=== PATIENT | female | born 1945 | race Hispanic/Latino ===

== ENCOUNTER 2018-09-14 19:11 | Emergency (ER) | payer MEDICARE ==
[2018-09-14] MEDS ORDERED: 0.9% SODIUM CHLORIDE 1000 ML IV BAG IV ONE (20:17)
[2018-09-14 20:30] LABS: BASOPHILS % (AUTO) 0.4 % (0.0-5.0); EOSINOPHILS % (AUTO) 0.4 % (0.0-8.0); HEMATOCRIT 35.8 % (36-48); MEAN CORPUSCULAR HEMOGLOBIN 30.9 pg (27.0-33.0); MEAN CORPUSCULAR HGB CONC 33.9 g/dL (32.0-36.0); MEAN CORPUSCULAR VOLUME 91.1 fL (79-99); MONOCYTES % (AUTO) 7.4 % (3.0-13.0); NEUTROPHILS % (AUTO) 68.8 % (40.0-77.0); NUCLEATED RED BLOOD CELLS 0.1 % (0.0-0.19); PLATELET COUNT (AUTO) 144 K/uL (130-400); RED BLOOD CELL COUNT(AUTO) 3.93 MIL/uL (4.00-5.50); RED CELL DISTRIBUTION WIDTH 13.7 % (11.0-15.5)
[2018-09-14 20:33] LABS: APPEARANCE,URINE Cloudy (CLEAR); BILIRUBIN,URINE Negative (NEGATIVE); COLOR,URINE Yellow (YELLOW); GLUCOSE, URINE (UA) Negative (NEGATIVE); KETONES,URINE Negative (NEGATIVE); LEUKOCYTE ESTERASE ,URINE Small (NEGATIVE); NITRATE,URINE Negative (NEGATIVE); OCCULT BLOOD,URINE Negative (NEGATIVE); PROTEIN,URINE Trace mg/dL (NEGATIVE)
[2018-09-14 20:42] LABS: CREATININE 0.8 mg/dL (0.5-1.5); POTASSIUM 3.9 mmol/L (3.5-5.1)
[2018-09-14 20:46] LABS: ALBUMIN 3.7 g/dL (3.5-5.0); BILIRUBIN,TOTAL 0.3 mg/dL (0.2-1.0)
[2018-09-14 21:25] LABS: BACTERIA,URINE Few /HPF (None Seen); MUCUS,URINE Few LPF (None Seen); RBC,URINE None Seen /HPF (0-1); SQUAMOUS EPITHELIAL CELL,UR 30-50 /HPF (0-2)
== END 2018-09-14 21:56 | disposition home or self-care (01) ==
LOC: EDH 19:11
DX: E86.9 Volume depletion, unspecified (principal); R53.81 Other malaise; R53.83 Other fatigue; T40.4X5A Adverse effect of other synthetic narcotics, initial encounter; I10 Essential (primary) hypertension; E78.5 Hyperlipidemia, unspecified; Y92.89 Other specified places as the place of occurrence of the external cause
CPT/HCPCS: 36415; 80053; 81001; 82550; 82948; 84484; 85025; 93005; 96360; 99284; J7030

== ENCOUNTER 2024-04-10 13:30 | Observation (INO) | payer MEDICARE ==
[~2024-04-10] VITALS: Ht 149.9 cm; Wt 61.2 kg
[2024-04-10 14:35] LABS: BASOPHILS # (AUTO) 0.01 K/uL (0.00-0.20); BASOPHILS % (AUTO) 0.1 % (0.0-5.0); EOSINOPHILS # (AUTO) 0.02 K/uL (0.00-0.70); EOSINOPHILS % (AUTO) 0.3 % (0.0-8.0); HEMATOCRIT 31.1 % (36-48); IMMATURE GRANULOCYTE ABSOLUTE 0.02 K/uL (0-1); LYMPHOCYTES # (AUTO) 1.1 K/uL (1.0-4.8); LYMPHOCYTES % (AUTO) 15.5 % (21.0-51.0); MEAN CORPUSCULAR HEMOGLOBIN 30.1 pg (27.0-33.0); MEAN CORPUSCULAR HGB CONC 33.1 g/dL (32.0-36.0); MEAN CORPUSCULAR VOLUME 90.9 fL (79-99); MONOCYTES # (AUTO) 0.4 K/uL (0.1-1.0); MONOCYTES % (AUTO) 5.5 % (3.0-13.0); NEUTROPHILS # (AUTO) 5.5 K/uL (1.8-7.7); NEUTROPHILS % (AUTO) 78.3 % (40.0-77.0); PLATELET COUNT (AUTO) 125 K/uL (130-400); RED BLOOD CELL COUNT(AUTO) 3.42 MIL/uL (4.00-5.50); RED CELL DISTRIBUTION WIDTH 13.9 % (11.0-15.5); WHITE BLOOD COUNT (AUTO) 7.1 K/uL (4.8-10.8)
[2024-04-10 14:56] LABS: ALBUMIN 3.3 g/dL (3.5-5.0); BILIRUBIN,DIRECT 0.2 mg/dL (0.0-0.3); BILIRUBIN,TOTAL 0.7 mg/dL (0.2-1.0); CREATININE 0.8 mg/dL (0.5-1.0)
[2024-04-10 14:58] LABS: B-TYPE NATRIURETIC PEPTIDE 88 pg/mL (0-100)
[2024-04-10] MEDS: DEXTROSE 5 % AND 0.9 % NACL 1,000 ML IV ONE (15:43)
[2024-04-10] MEDS ORDERED: PoTASSium chloRIDE 20MEQ ER 20 MEQ ERTAB PO PRN (16:00)
[2024-04-10] MEDS ORDERED: ondanSETRON 4MG TABLET PO PRN (16:00)
[2024-04-10] MEDS ORDERED: PoTASSium chloRIDE 20MEQ/100ML 100 ML IV PRN (16:00)
[2024-04-10] MEDS ORDERED: acetaMINOPHEN 325 MG TAB PO PRN (16:00)
[2024-04-10] MEDS: INSULIN LISpro 100 UNIT/ML 3ML SQ SCH (16:30)
[2024-04-10] MEDS: PoTASSium chl 10% ELIXIR 20MEQ 20 MEQ/15 ML UDCUP PO PRN (16:37)
[2024-04-10] MEDS: PoTASSium chloRIDE 20MEQ ER 20 MEQ ERTAB PO ONE (17:03)
[2024-04-10 17:11] LABS: APPEARANCE,URINE TURBID (CLEAR); BILIRUBIN,URINE NEGATIVE (NEGATIVE); COLOR,URINE YELLOW (YELLOW); GLUCOSE, URINE (UA) NEGATIVE (NEGATIVE); KETONES,URINE NEGATIVE (NEGATIVE); LEUKOCYTE ESTERASE ,URINE 500 Leu/uL (NEGATIVE); NITRATE,URINE NEGATIVE (NEGATIVE); OCCULT BLOOD,URINE NEGATIVE (NEGATIVE); PH,URINE 5.5 (5.0-8.0); PROTEIN,URINE 20 mg/dL (NEGATIVE); UROBILINOGEN,URINE 0.2 mg/dL (0.2-1.0)
[2024-04-10 17:12] LABS: ADD UA MICROSCOPIC YES
[2024-04-10 17:16] LABS: BACTERIA,URINE MOD /HPF (None Seen); MUCUS,URINE RARE LPF (None Seen); NON-SQUAMOUS EPITHELIAL CELL <1 /HPF (0-2); SQUAMOUS EPITHELIAL CELL,UR FEW /HPF (0-2); UNCLASSIFIED CRYSTAL 4 /HPF (None Seen); YEAST,URINE BUDDING FEW /HPF (None Seen)
[2024-04-10] MEDS: ALPRAZolam 0.5 MG TABLET PO ONE (17:55)
[2024-04-10] MEDS ORDERED: ROSU40TA88 PO (18:39)
[2024-04-10] MEDS ORDERED: SITA1TAB6 PO (18:39)
[2024-04-10] MEDS ORDERED: GLIP10TA16 PO (18:39)
[2024-04-10] MEDS ORDERED: LISI40TA9 PO (18:39)
[2024-04-10] MEDS ORDERED: MEMA5TAB16 PO (18:39)
[2024-04-10 20:00] VITALS: BP 152/79; PULSE 79; RESP 16; TEMP 98.4; O2SAT 98
[2024-04-10] MEDS: MEMANtine HCL 5 MG TABLET PO SCH (20:34)
[2024-04-10] MEDS: atorVAStatin 40 MG TABLET PO SCH (20:34)
[2024-04-10] MEDS: HALOPERIDOL INJ 5 MG/ML VIAL IM SCH (21:10)
[2024-04-11] VITALS (7 sets, daily range): BP systolic 131–166; BP diastolic 57–83; PULSE 71–98; RESP 16–20; TEMP 98.1–98.6; O2SAT 98
[2024-04-11 05:57] LABS: BASOPHILS # (AUTO) 0.03 K/uL (0.00-0.20); BASOPHILS % (AUTO) 0.5 % (0.0-5.0); EOSINOPHILS # (AUTO) 0.09 K/uL (0.00-0.70); EOSINOPHILS % (AUTO) 1.4 % (0.0-8.0); HEMATOCRIT 32.7 % (36-48); IMMATURE GRANULOCYTE ABSOLUTE 0.03 K/uL (0-1); LYMPHOCYTES # (AUTO) 1.9 K/uL (1.0-4.8); LYMPHOCYTES % (AUTO) 29.5 % (21.0-51.0); MEAN CORPUSCULAR HEMOGLOBIN 30.1 pg (27.0-33.0); MEAN CORPUSCULAR HGB CONC 32.7 g/dL (32.0-36.0); MEAN CORPUSCULAR VOLUME 91.9 fL (79-99); MONOCYTES # (AUTO) 0.6 K/uL (0.1-1.0); MONOCYTES % (AUTO) 8.8 % (3.0-13.0); NEUTROPHILS # (AUTO) 3.9 K/uL (1.8-7.7); NEUTROPHILS % (AUTO) 59.3 % (40.0-77.0); PLATELET COUNT (AUTO) 121 K/uL (130-400); RED BLOOD CELL COUNT(AUTO) 3.56 MIL/uL (4.00-5.50); RED CELL DISTRIBUTION WIDTH 13.6 % (11.0-15.5); WHITE BLOOD COUNT (AUTO) 6.6 K/uL (4.8-10.8)
[2024-04-11 06:27] LABS: ALBUMIN 3.2 g/dL (3.5-5.0); BILIRUBIN,TOTAL 0.8 mg/dL (0.2-1.0); CREATININE 0.8 mg/dL (0.5-1.0); MAGNESIUM 1.4 mg/dL (1.80-2.40); POTASSIUM 3.7 mmol/L (3.5-5.1); TOTAL PROTEIN, SERUM 6.8 g/dL (6.0-8.3)
[2024-04-11] MEDS: LISINOPRIL 40 MG TABLET PO SCH (09:53)
[2024-04-12] VITALS: BP 159/82; PULSE 77; RESP 18; TEMP 98.6
[2024-04-12 05:25] VITALS: BP 153/87; PULSE 84; RESP 18
[2024-04-12 07:59] VITALS: BP 142/68; PULSE 79; RESP 16; TEMP 98.3
[2024-04-12 08:15] VITALS: O2SAT 95
[2024-04-12 11:53] VITALS: BP 141/70; PULSE 85; RESP 16; TEMP 98.4
[2024-04-12] MEDS: cefTRIAXone 1G VIAL IVPB SCH (12:16)
[2024-04-12] MEDS: MAGNESIUM 2GM PREMIX 50ML 50 ML IV PRN (14:06)
[2024-04-12 16:00] VITALS: BP 157/69; PULSE 81; RESP 16; TEMP 98.4
== END 2024-04-12 18:47 | disposition home or self-care (01) ==
LOC: EDH 13:30 → EDHIP 16:00 → 3DH 18:50
PROVIDERS: ADMIT Internal Medicine Infectious Disease; ATTEND Internal Medicine Infectious Disease
DX: E11.649 Type 2 diabetes mellitus with hypoglycemia without coma (principal); G93.41 Metabolic encephalopathy; I10 Essential (primary) hypertension; N39.0 Urinary tract infection, site not specified; B96.20 Unspecified Escherichia coli [E. coli] as the cause of diseases classified elsewhere; M46.40 Discitis, unspecified, site unspecified; R53.81 Other malaise; F03.90 Unspecified dementia, unspecified severity, without behavioral disturbance, psychotic disturbance, mood disturbance, and anxiety; E78.00 Pure hypercholesterolemia, unspecified; Z79.899 Other long term (current) drug therapy
CPT/HCPCS: 96372; 96361; 99285; 80076; 84484; 80048; 83880; 85025 ×2; 87040; 87086 ×2; 87186; 82948 ×12; 83605; 81001; 36415 ×2; 71045; 93005; 83735; 80053; 96365; 96367; G0378 ×51; J7042; J1630; J1815 ×4; J3475; J0696